=== PATIENT | female | born 1995 | race Caucasian/White ===

== ENCOUNTER 2019-10-02 13:26 | Emergency (ER) | payer SELFPAY ==
--- NOTE | 2019-10-02 13:53 | EDM.PDOC ---
ED HPI GENERAL MEDICAL PROBLEM - General Chief Complaint: Abdominal Pain Time Seen by Provider: 10/02/19 13:35 Source of Information: Reports: Patient History Limitations: Reports: No Limitations - History of Present Illness INITIAL COMMENTS - FREE TEXT/NARRATIVE: HISTORY AND PHYSICAL: History of present illness: Patient is a 24-year-old male, who identifies as female, who presents to the emergency room today with complaints of generalized abdominal pain 7-10 days. Patient was seen in our emergency room approximately a week ago but had left AGAINST MEDICAL ADVICE (used his legal name- different than today's account) and she states she did follow-up with Alberta Eaton at [facility]. She states she did not get any answers as to why she is having abdominal pain and nausea. She states she is concerned that she is dehydrated as she has had a few episodes of vomiting, and is requesting pain management. States she does not want any NSAIDs. Patient denies any fever, chills, headache, change in vision, syncope or near syncope. Denies any chest pain, back pain, shortness of breath or cough. Denies any diarrhea, constipation or dysuria. Denies any testicular pain, swelling or erythema. Has not noted any blood in urine or stool. Patient has been eating and drinking appropriately. Review of systems: As per history of present illness and below otherwise all systems reviewed and negative. Past medical history: As per history of present illness and as reviewed below otherwise noncontributory. Surgical history: As per history of present illness and as reviewed below otherwise noncontributory. Social history: See social history for further information Family history: As per history of present illness and as reviewed below otherwise noncontributory. Physical exam: General: Well developed and well nourished 24 year old female/male. Alert and oriented. Nontoxic appearing and in no acute distress. HEENT: Atraumatic, normocephalic, pupils equal and reactive bilaterally, negative for conjunctival pallor or scleral icterus, mucous membranes moist, trachea midline. No drooling or trismus noted. No meningeal signs. No hot potato voice noted. Lungs: Clear to auscultation, breath sounds equal bilaterally, chest nontender. Heart: S1S2, regular rate and rhythm without overt murmur Abdomen: Soft, nondistended, obese, tender in all 4 quadrants. Negative for masses or hepatosplenomegaly. Negative for costovertebral tenderness. Pelvis: Stable nontender. Skin: Intact, warm, dry. No lesions or rashes noted. Extremities: Atraumatic, moves all extremities per self without difficulty or deficits, negative for cords or calf pain. Neurovascular unremarkable. Neuro: Awake, alert, oriented. Cranial nerves II through XII unremarkable. Cerebellum unremarkable. Motor and sensory unremarkable throughout. Exam nonfocal. Notes: Lab work is unremarkable. Patient did get some relief with the medications. All findings were shared with the patient and the victim's advocate (Eulalia) who is at the bedside. Encouraged her to follow up with her primary care provider. Supportive care measures were reviewed and discussed. Voices understanding and is agreeable to plan of care. Denies any further questions or concerns at this time. Diagnostics: CBC, CMP, UA, Lipase Therapeutics: IV fluids, Bentyl, Zofran, Protonix Prescription: Zofran Impression: Abdominal Pain Plan: 1. [place] diet over the next 24-48 hours. Increase oral fluids to prevent dehydration. 2. Tylenol and/or ibuprofen as needed for pain. 3. Follow-up with your primary care provider, Alberta Eaton as we discussed. Return to the ED as needed and as discussed. Definitive disposition and diagnosis as appropriate pending reevaluation and review of above. Left Upper Abdominal Pain Score (Numeric/FACES): 10 - Related Data Allergies Allergy/AdvReac Type Severity Reaction Status Date / Time NSAIDS (Non-Steroidal Allergy Hives Verified 10/02/19 14:07 Anti-Inflamma Home Meds: Home Meds Omeprazole Magnesium [Prilosec] 10 mg PO DAILY 10/02/19 [History] ED ROS GENERAL - Review of Systems Review Of Systems: Comprehensive ROS is negative, except as noted in HPI. ED EXAM, GI/ABD - Physical Exam Exam: See Below (See dictation) Course - Vital Signs Last Recorded V/S: Last Vital Signs Temp 96 F 10/02/19 14:08 Pulse 85 10/02/19 14:08 Resp 16 10/02/19 14:08 BP 164/82 H 10/02/19 14:08 Pulse Ox 97 10/02/19 14:08 - Orders/Labs/Meds Labs: Laboratory Tests 10/02/19 10/02/19 10/02/19 Range/Units 14:50 14:50 15:05 WBC 9.28 (4.0-11.0) K/uL RBC 6.20 H (4.30-5.90) M/uL Hgb 13.4 (12.0-16.0) g/dL Hct 41.4 (36.0-46.0) % MCV 66.8 L (80.0-98.0) fL MCH 21.6 L (27.0-32.0) pg MCHC 32.4 (31.0-37.0) g/dL RDW Std Deviation 38.7 (28.0-62.0) fl RDW Coeff of Jesus 16 H (11.0-15.0) % Plt Count 338 (150-400) K/uL MPV 10.10 (7.40-12.00) fL Neut % (Auto) 50.7 (48.0-80.0) % Lymph % (Auto) 38.5 (16.0-40.0) % Sanders % (Auto) 7.8 (0.0-15.0) % Eos % (Auto) 2.7 (0.0-7.0) % Baso % (Auto) 0.3 (0.0-1.5) % Neut # (Auto) 4.7 (1.4-5.7) K/uL Lymph # (Auto) 3.6 H (0.6-2.4) K/uL Sanders # (Auto) 0.7 (0.0-0.8) K/uL Eos # (Auto) 0.3 (0.0-0.7) K/uL Baso # (Auto) 0.0 (0.0-0.1) K/uL Nucleated RBC % 0.0 /100WBC Nucleated RBCs # 0 K/uL Sodium 137 (136-145) mmol/L Potassium 4.1 (3.5-5.1) mmol/L Chloride 103 (98-107) mmol/L Carbon Dioxide 27.4 (21.0-32.0) mmol/L BUN 10 (7.0-18.0) mg/dL Creatinine 0.8 (0.6-1.0) mg/dL Est Cr Clr Drug Dosing 93.64 mL/min Estimated GFR (MDRD) > 60.0 ml/min Glucose 86 (74-106) mg/dL Calcium 8.4 L (8.5-10.1) mg/dL Total Bilirubin 0.3 (0.2-1.0) mg/dL AST 40 H (15-37) IU/L ALT 76 H (14-63) IU/L Alkaline Phosphatase 106 (46-116) U/L Total Protein 8.1 (6.4-8.2) g/dL Albumin 3.3 L (3.4-5.0) g/dL Globulin 4.8 H (2.6-4.0) g/dL Albumin/Globulin Ratio 0.7 L (0.9-1.6) Lipase 124 (73-393) U/L Urine Color YELLOW Urine Appearance CLEAR Urine pH 6.5 (5.0-8.0) Ur Specific [place] 1.015 (1.001-1.035) Urine Protein NEGATIVE (NEGATIVE) mg/dL Urine Glucose (UA) NEGATIVE (NEGATIVE) mg/dL Urine Ketones NEGATIVE (NEGATIVE) mg/dL Urine Occult Blood NEGATIVE (NEGATIVE) Urine Nitrite NEGATIVE (NEGATIVE) Urine Bilirubin NEGATIVE (NEGATIVE) Urine Urobilinogen 2.0 H (<2.0) EU/dL Ur Leukocyte Esterase NEGATIVE (NEGATIVE) Meds: Medications Discontinued Medications Generic Name Dose Route Start Last Admin Trade Name Freq PRN Reason Stop Dose Admin Dicyclomine HCl 10 mg 10/02/19 14:37 10/02/19 15:07 Bentyl PO 10/02/19 14:38 10 mg ONETIME ONE Administration Sodium Chloride 1,000 mls @ 999 mls/hr 10/02/19 14:37 10/02/19 15:07 Normal Saline IV 10/02/19 15:37 999 mls/hr STAT ONE Administration Sterile Water Confirm 10/02/19 14:57 10/02/19 15:07 Sterile Water For Injection Administered 10/02/19 14:58 20 mls/hr Dose Administration 20 mls @ as directed .ROUTE .STK-MED ONE Ondansetron HCl 4 mg 10/02/19 14:26 10/02/19 15:17 Zofran Odt PO 10/02/19 14:27 Not Given ONETIME ONE Ondansetron HCl 4 mg 10/02/19 14:37 10/02/19 15:17 Zofran Odt PO 10/02/19 14:38 Not Given ONETIME ONE Ondansetron HCl Confirm 10/02/19 14:57 10/02/19 15:07 Zofran Administered 10/02/19 14:58 Not Given Dose 4 mg .ROUTE .STK-MED ONE Ondansetron HCl 4 mg 10/02/19 15:08 10/02/19 15:08 Zofran IVPUSH 10/02/19 15:09 4 mg ONETIME ONE Administration Pantoprazole Sodium 80 mg 10/02/19 14:40 10/02/19 15:07 Protonix Iv IVPUSH 10/02/19 14:41 80 mg .BOLUS ONE Administration Departure - Departure Time of Disposition: 15:55 Disposition: Home, Self-Care 01 Clinical Impression: Abdominal pain Qualifiers: Abdominal location: generalized Qualified Code(s): R10.84 - Generalized abdominal pain - Discharge Information Instructions: Abdominal Pain, Adult, [id number] Forms: ED Department Discharge Additional Instructions: The following information is given to patients seen in the emergency department who are being discharged to home. This information is to outline your options for follow-up care. We provide all patients seen in our emergency department with a follow-up referral. The need for follow-up, as well as the timing and circumstances, are variable depending upon the specifics of your emergency department visit. If you don't have a primary care physician on staff, we will provide you with a referral. We always advise you to contact your personal physician following an emergency department visit to inform them of the circumstance of the visit and for follow-up with them and/or the need for any referrals to a consulting specialist. The emergency department will also refer you to a specialist when appropriate. This referral assures that you have the opportunity for follow-up care with a specialist. All of these measure are taken in an effort to provide you with optimal care, which includes your follow-up. Under all circumstances we always encourage you to contact your private physician who remains a resource for coordinating your care. When calling for follow-up care, please make the office aware that this follow-up is from your recent emergency room visit. If for any reason you are refused follow-up, please contact the [facility] Emergency Department at and asked to speak to the emergency department charge nurse. [facility] [address] [place] [address] [facility] [address] [place] [address] 1. [place] diet over the next 24-48 hours. Increase oral fluids to prevent dehydration. 2. Tylenol and/or ibuprofen as needed for pain. 3. Follow-up with your primary care provider, Alberta Eaton or a general surgeon as we discussed. Return to the ED as needed and as discussed.
[2019-10-02] MEDS ORDERED: Sodium Chloride 0.9% 1,000 ML IV ONE (14:37)
[2019-10-02] MEDS ORDERED: Dicyclomine 10 MG Cap PO ONE (14:37)
[2019-10-02] MEDS ORDERED: Pantoprazole 40 MG Vial IVPUSH ONE (14:40)
[2019-10-02] MEDS ORDERED: Ondansetron 4 MG/2 ML SDV ONE (14:57)
[2019-10-02] MEDS ORDERED: Water For Injection, Sterile 20 ML ONE (14:57)
[2019-10-02] MEDS: Ondansetron 4 MG Tab.DIS PO ONE ×4 (15:07→15:17)
[2019-10-02] MEDS ORDERED: Ondansetron 4 MG/2 ML SDV IVPUSH ONE (15:08)
[2019-10-02 15:39] LABS: BLOOD UREA NITROGEN,BUN 10 mg/dL (7.0-18.0); CARBON DIOXIDE,CO2 27.4 mmol/L (21.0-32.0); CHLORIDE,CL 103 mmol/L (98-107); GLUCOSE RANDOM 86 mg/dL (74-106); LIPASE 124 U/L (73-393); POTASSIUM,K 4.1 mmol/L (3.5-5.1); SODIUM,NA 137 mmol/L (136-145)
== END 2019-10-02 16:30 | disposition home or self-care (01) ==
LOC: MW.ED 13:26
DX: R10.84 Generalized abdominal pain (principal); Z88.6 Allergy status to analgesic agent
CPT/HCPCS: 80053; 81003; 83690; 85025; 96361; 96374; 96375; 99284; A9270; C9113; J2405; J7040; 99283; J7030